=== PATIENT | female | born 1970 | race Caucasian/White ===

== ENCOUNTER → 2019-11-05 11:19 | Outpatient (BNVA) | payer OTHER, SELFPAY | PROVIDERS: PCP Family Medicine; Visit Provider Nurse Practitioner Women's Health | DX: Z01.411 Encounter for gynecological examination (general) (routine) with abnormal findings (principal); N95.1 Menopausal and female climacteric states; R58 Hemorrhage, not elsewhere classified | CPT/HCPCS: 83001; 84450 ==

== ENCOUNTER → 2019-11-12 15:00 | Outpatient (BNVA) | payer OTHER, SELFPAY | PROVIDERS: PCP Family Medicine; Visit Provider Nurse Practitioner Women's Health | DX: N83.202 Unspecified ovarian cyst, left side (principal) | CPT/HCPCS: 76830 ==

== ENCOUNTER → 2019-11-15 13:51 | Outpatient (BNVA) | payer OTHER, SELFPAY | PROVIDERS: PCP Family Medicine; Visit Provider Nurse Practitioner Women's Health | DX: N83.209 Unspecified ovarian cyst, unspecified side (principal); R58 Hemorrhage, not elsewhere classified; N83.202 Unspecified ovarian cyst, left side | CPT/HCPCS: 86304 ==

== ENCOUNTER → 2020-05-05 13:26 | Outpatient (BNVA) | payer OTHER, SELFPAY | PROVIDERS: PCP Family Medicine; Visit Provider Dermatology | DX: D48.9 Neoplasm of uncertain behavior, unspecified (principal) | CPT/HCPCS: 88304 ==

== ENCOUNTER 2020-10-08 07:46 | Outpatient (CLI) | payer OTHER, SELFPAY ==
--- NOTE | 2020-10-08 07:54 | MM_ITS ---
WS: [id number] BILATERAL DIGITAL SCREENING MAMMOGRAM WITH CAD CLINICAL INFORMATION: SCREENING HISTORY: Screening mammogram. No current complaints. COMPARISON: TECHNIQUE: Bilateral CC and MLO views. FINDINGS: Fatty-replaced breasts bilaterally. No suspicious focal mass, asymmetry, calcifications, or python architect ural distortion. No evidence of malignancy. MM/[place] [id number] IMPRESSION: BI-RADS: 1-Negative FOLLOW UP: 1 Year Follow-up Recommend return to annual screening mammography.
== END 2020-10-08 07:47 | disposition home or self-care (01) ==
LOC: RADSHAW 07:49
PROVIDERS: PCP Nurse Practitioner Family; Visit Provider Nurse Practitioner Family
DX: Z12.31 Encounter for screening mammogram for malignant neoplasm of breast (principal)
CPT/HCPCS: 77067

== ENCOUNTER → 2021-09-24 15:00 | Outpatient (BNVA) | payer OTHER, SELFPAY | PROVIDERS: PCP Nurse Practitioner Family; Referring Provider Nurse Practitioner Family; Visit Provider Podiatrist Foot & Ankle Surgery | DX: M79.674 Pain in right toe(s) (principal); M79.675 Pain in left toe(s); M21.612 Bunion of left foot; M21.611 Bunion of right foot | CPT/HCPCS: 77077 ==

== ENCOUNTER 2022-05-10 15:24 | Outpatient (CLI) | payer OTHER, SELFPAY ==
--- NOTE | 2022-05-10 15:47 | XR_ITS ---
WS: [id number] Exam: XR KUB [id number] Date/Time of Exam: 05/10/2022 4:12 PM Reason For Exam: r/o kidney stone No sign of bowel obstruction or free air. Moderate amount retained stool in the colon. A 2.5 cm facet ed calcification seen in the right abdomen probably represents a gallstone. No sign of organ enlargem ent. Regional bony elements appear normal. XR/XR KUB [id number] IMPRESSION: 1. No acute abdominal process. Constipation. 2. 2.5 cm faceted calcification in the right abdomen probably representing a pr ominent gallstone. Gallbladder ultrasound could be considered for further daniel p.
== END 2022-05-10 15:25 | disposition home or self-care (01) ==
LOC: RAD 15:31
PROVIDERS: PCP Family Medicine; Visit Provider Family Medicine
DX: R10.9 Unspecified abdominal pain (principal); K82.8 Other specified diseases of gallbladder
CPT/HCPCS: 74018; 81000

== ENCOUNTER 2022-07-15 08:07 | Outpatient (CLI) | payer OTHER, SELFPAY ==
--- NOTE | 2022-07-15 08:30 | US_ITS ---
WS: [id number] ULTRASOUND ABDOMEN LIMITED CLINICAL INFORMATION: ABDOMAN PAIN COMPARISON: None. FINDINGS: Liver Size: Enlarged Craniocaudal length: 20.2 cm. Echogenicity: Coarse Surface nodularity: None. Mass (size and location): None. Bile ducts Intrahepatic ducts: Normal. Common bile duct diameter: 0.3 cm. Gallbladder Multiple mobile shadowing gallbladder calculi. No gallbladder wall thickening or pericholecystic flui d. Gallstones: Present Gallbladder sludge: None. Gallbladder wall thickening: None. Pericholecystic fluid: None. Sonographic Lester sign: Absent. Pancreas Echogenic pancreas Right kidney: Normal. Hydronephrosis: None. Size: 11.2 cm x 5.3 cm x 5.0 cm. Abdominal aorta and IVC Visualized portions are normal. Ascites: None. US/US gall bladder [id number] IMPRESSION: 1. Heterogeneous hepatic echogenicity likely due to fatty infiltration. Hepato megaly. Recommend correlation with liver function tests. 2. Multiple mobile shadowing gallbladder calculi. 3. No gallbladder wall thickening or pericholecystic fluid. 4. Normal common bile duct. 5. No hydronephrosis in either kidney. 6. Increased pancreatic echogenicity can be seen with pancreatitis or fatty in filtration. Recommend correlation with pancreatic enzymes. No fluid collections visualized.
== END 2022-07-15 08:08 | disposition home or self-care (01) ==
PROVIDERS: PCP Family Medicine; Visit Provider Family Medicine
DX: R10.9 Unspecified abdominal pain (principal); R16.0 Hepatomegaly, not elsewhere classified; K80.20 Calculus of gallbladder without cholecystitis without obstruction
CPT/HCPCS: 76705

== ENCOUNTER 2022-08-02 10:32 | Outpatient (CLI) | payer OTHER, SELFPAY ==
--- NOTE | 2022-08-02 10:39 | MM_ITS ---
WS: [id number] BILATERAL SCREENING DIGITAL TOMOSYNTHESIS MAMMOGRAM WITH CAD HISTORY: SCREENING COMPARISON: 10/08/2020 and 09/06/2018 Bilateral CC and MLO views with tomosynthesis and synthetic mammography submitted. Computer aided det ection analyzed. Breast composition: There are scattered areas of fibroglandular density. No suspicious masses, microc alcifications or architectural distortion. MM/[place] [id number] IMPRESSION: BI-RADS: 1-Negative FOLLOW UP: 1 Year Follow-up
== END 2022-08-02 10:33 | disposition home or self-care (01) ==
LOC: RAD 10:33
PROVIDERS: PCP Family Medicine; Visit Provider Family Medicine
DX: Z12.31 Encounter for screening mammogram for malignant neoplasm of breast (principal)
CPT/HCPCS: 77063; 77067

== ENCOUNTER 2022-11-20 06:44 | Outpatient (CLI) | payer OTHER, SELFPAY ==
--- NOTE | 2022-11-20 | US_ITS ---
WS: [id number] INDICATION: Bruising TECHNIQUE: Ultrasound soft tissue area of concern FINDINGS: Ultrasound soft tissue area of concern LEFT upper arm. Normal underlying subcutaneous soft tissues. No cystic or solid lesions. No suspicious findings. US/US soft tissue/extremity [id number] IMPRESSION: No suspicious findings in the area of concern.
== END 2022-11-20 06:45 | disposition home or self-care (01) ==
LOC: RAD 06:52
PROVIDERS: PCP Family Medicine; Visit Provider Family Medicine
DX: R22.31 Localized swelling, mass and lump, right upper limb (principal)
CPT/HCPCS: 76882

== ENCOUNTER 2024-08-21 08:24 | Outpatient (CLI) | payer OTHER, SELFPAY ==
--- NOTE | 2024-08-21 08:31 | XRR_ITS ---
PROCEDURE INFORMATION: Exam: XR Left Knee Exam date and time: 08/21/2024 8:41 AM Age: 54 years old Clinical indication: Left medial knee pain and instability , HX of thyroid cancer; Additional info: Medial left knee pain TECHNIQUE: Imaging protocol: Radiologic exam of the left knee. Views: 3 views. 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 Well ossified densities at the medial aspect of the proximal fibula possibly representing prior avulsion injury versus osteochondral fragments. Soft tissues: See Bones/joints finding. XR/XR knee LT 3V* [id number] IMPRESSION: 1. No acute osseous abnormality. 2. 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
== END 2024-08-21 08:25 | disposition home or self-care (01) ==
PROVIDERS: PCP Family Medicine; Visit Provider Family Medicine
DX: M17.12 Unilateral primary osteoarthritis, left knee (principal); Z85.850 Personal history of malignant neoplasm of thyroid; R93.6 Abnormal findings on diagnostic imaging of limbs
CPT/HCPCS: 73562

== ENCOUNTER 2024-09-12 08:06 | Outpatient (CLI) | payer OTHER, SELFPAY ==
--- NOTE | 2024-09-12 08:20 | MM_ITS ---
WS: [id number] BILATERAL SCREENING DIGITAL TOMOSYNTHESIS MAMMOGRAM WITH CAD HISTORY: breast cancer screening COMPARISON: 08/02/2022, 10/08/2020 Bilateral CC and MLO views with tomosynthesis and synthetic mammography submitted. Computer aided detection analyzed. Breast composition: There are scattered areas of fibroglandular density. No suspicious masses, microcalcifications or architectural distortion. MM/MM scr BI tomosynthesis [id number] IMPRESSION: BI-RADS: 2 - Benign. FOLLOW UP: 1 Year Follow-up
== END 2024-09-12 08:07 | disposition home or self-care (01) ==
PROVIDERS: PCP Family Medicine; Visit Provider Family Medicine
DX: Z12.31 Encounter for screening mammogram for malignant neoplasm of breast (principal); R92.323 Mammographic fibroglandular density, bilateral breasts
CPT/HCPCS: 77063; 77067

== ENCOUNTER 2025-01-17 08:22 | Outpatient (CLI) | payer OTHER, SELFPAY ==
--- NOTE | 2025-01-17 08:30 | USCV_ITS ---
Alejandrina Presley Age: 54 Gender: F : 1970 Exam Date: 01/17/2025 08:44 Ordering Phys: Kia Cowart MD Technologist: [id number] Exam Location: [facility] – [place] Indication: palpations, family hx of CHF BP: 148 / 909 HR: 69 Rhythm: Sinus Technical Quality: Adequate MEASUREMENTS (Male / Female) Normal Values 2D ECHO LV Diastolic Diameter PLAX 5.5 cm 4.2 - 5.9 / 3.9 - 5.3 cm IVS Diastolic Thickness 0.8 cm 0.6 - 1.0 / 0.6 - 0.9 cm IVS Systolic Thickness 1.3 cm LVPW Diastolic Thickness 1.1 cm 0.6 - 1.0 / 0.6 - 0.9 cm LVPW Systolic Thickness 1.7 cm LVOT Diameter 2.0 cm LV Ejection Fraction 2D Teich 69.4 % LV Ejection Fraction MOD 4C 74.7 % LV Ejection Fraction MOD 2C 60.5 % LV Ejection Fraction 2C AL 60.6 % LA Diameter 2.8 cm RA Systolic Volume 4C AL 29.2 ml RA Systolic Volume 4C MOD 26.7 ml LA Sys Volume AL 47.3 cm cubed LA Sys Volume Index AL 20.3 cm cubed/m squared Aorta at Sinotubular Diameter 2.8 cm IVC Diameter 1.8 cm M-MODE LA Ao Ratio MM 1.4 AV Cusp Separation MM 1.5 cm DOPPLER AV Peak Velocity 141.0 cm/s LVOT Peak Velocity 109.0 cm/s AV Area Cont Eq vti 3.0 cm squared AV Area Cont Eq pk 2.5 cm squared MV Peak Velocity 99.0 cm/s MV Area PHT 3.8 cm squared Mitral E to A Ratio 1.0 TR Peak Velocity 101.0 cm/s TR Peak Gradient 4.1 mmHg TV Peak E Velocity 66.0 cm/s FINDINGS Left Ventricle Normal left ventricular size, systolic function and wall thickness, with no regional wall motion abnormalities. Left ventricular ejection fraction is estimated at 60 %. Grade I/IV diastolic dysfunction (abnormal relaxation filling pattern), normal to mildly elevated filling pressures. Right Ventricle The right ventricle is normal in size and function. Right Atrium The right atrium is normal in size. Left Atrium The left atrium is normal in size. Mitral Valve Structurally normal mitral valve without significant stenosis or prolapse. There is no mitral regurgitation. Aortic Valve Mild aortic valve calcification. No aortic valve stenosis. Trace aortic valve regurgitation. Tricuspid Valve Structurally normal tricuspid valve without significant stenosis or regurgitation. Pulmonary artery systolic pressure is normal. Pulmonic Valve Mild pulmonary valve regurgitation. Pericardium Normal pericardium without effusion. Aorta Normal ascending aorta dimension. IVC The inferior vena cava appears normal. CONCLUSIONS Normal left ventricular size, systolic function and wall thickness, with no regional wall motion abnormalities. Left ventricular ejection fraction is estimated at 60 %. Grade I/IV diastolic dysfunction (abnormal relaxation filling pattern), normal to mildly elevated filling pressures. There is no pericardial effusion. No significant chamber abnormalities. Right atrial pressure is around 5 mm of mercury. Geena Kaiser MD (Electronically Signed) Final Date: 01 February 2025 14:13 S
== END 2025-01-17 08:23 | disposition home or self-care (01) ==
LOC: RAD 08:24
PROVIDERS: PCP Family Medicine; Visit Provider Family Medicine
DX: R00.2 Palpitations (principal); I10 Essential (primary) hypertension; Z82.49 Family history of ischemic heart disease and other diseases of the circulatory system; R93.1 Abnormal findings on diagnostic imaging of heart and coronary circulation; I35.8 Other nonrheumatic aortic valve disorders; I37.1 Nonrheumatic pulmonary valve insufficiency
CPT/HCPCS: 93306

== ENCOUNTER → 2025-05-14 10:09 | Outpatient (BNVA) | payer OTHER, SELFPAY | PROVIDERS: PCP Family Medicine; Visit Provider Family Medicine | DX: R10.24 Suprapubic pain (principal) | CPT/HCPCS: 81000 ==